=== PATIENT | female | born 1935 | race Caucasian/White ===

== ENCOUNTER → 2017-10-12 | Outpatient (CLI) | payer OTHER, MEDICARE | LOC: FIMAGING 08:37 | PROVIDERS: ATTEND Family Medicine | DX: Z12.31 Encounter for screening mammogram for malignant neoplasm of breast (principal) ==

== ENCOUNTER → 2017-10-31 | Outpatient (CLI) | payer OTHER, MEDICARE | LOC: CIMAGING 15:03 | PROVIDERS: ATTEND Physician Assistant Medical | DX: N13.30 Unspecified hydronephrosis (principal) | CPT/HCPCS: 74018-PO; 76770-PO ==

== ENCOUNTER 2017-11-06 14:44 | Inpatient (IN) | payer OTHER, MEDICARE ==
--- NOTE | 2017-11-06 15:08 | EDPHY ---
HPI/HX/ROS/PE/MDM Narrative: CHIEF COMPLAINT: Shaking, chills, believes it is an adverse reaction to medications HISTORY OF PRESENT ILLNESS: The patient is an 82 y/o female with a history of hypertension complaining of shaking, chills which she believes is an adverse reaction to her medication, Bactrim. She was diagnosed with a UTI several weeks ago and has had several rounds of antibiotics. Sounds like she initially had cephalexin. Recently she has been treated with 1gm methenamine. She was initially diagnosed when she had pelvic pain; she did not have dysuria or a fever at this time. There was hematuria present. On 07/03/17 her urine culture grew E. coli. On 09/14/17 and 10/30/17 her urine culture grew Aerococcus urinae. The sample from 10/30/17 was sent to the [facility] and sensitivities to antibiotics are not available yet. Today she was seen by [facility] with Dr. Molina, and was started on Bactrim, 5 hours ago. She reports developing her symptoms immediately after taking her 1st dose of the new antibiotic, reporting she developed chills, shaking, and had mild pelvic pain. She is no longer shaking and does not have chills. No rash was noted at the time. No difficulty breathing. No fever, itching, chest pain, shortness of breath, palpitations, vomiting, diarrhea, headache, lightheadedness, recent illness. REVIEW OF SYSTEMS: Aside from elements discussed in the HPI, a comprehensive 10-point review of systems was reviewed and is negative. PAST MEDICAL HISTORY: Hypertension, craniotomy SOCIAL HISTORY: Lives in [place], at bedside, retired VITAL SIGNS: BP: 148/101, others reviewed by me GENERAL: Well-developed, well-nourished, resting comfortably in no respiratory distress. HEENT: Atraumatic. Eyes: No icterus, no injection. Mouth: moist mucous membranes. No erythema or lesions. Neck: supple with no adenopathy. LUNGS: Clear to auscultation bilaterally, no wheezes, rhonchi or rales. CARDIAC: Regular rate and rhythm, no rubs, murmurs or gallops. ABDOMEN: Soft, nontender, nondistended, bowel sounds normal. BACK: No CVA tenderness. EXTREMITIES: No trauma. No edema. Range of motion is normal throughout. NEURO: Alert and oriented, grossly nonfocal. SKIN: Warm and dry, no rash. PSYCHIATRIC: Normal mentation, no agitation. Portions of this note were transcribed by a medical insurance claims processor. I personally performed a history, physical exam, medical decision making, and confirmed accuracy of information the transcribed note. ED Course: The patient is an 82 y/o female with a history of hypertension presenting with shaking, chills, and pelvic pain at 10:00, 5 hours ago. She started SMZ-TMP today for an ongoing UTI that has been growing Aerococcus urinae. Currently, she is asymptomatic and her physical exam is normal. IV established. UA, CBC, lactic acid, and BMP ordered. 500mL IV NS administered. 1613: Reassessed patient, she has a temperature of 38.2 degrees, has pelvic pain , and is shaking again. 1gm Invanz, 1gm Tylenol, 600mg PO Motrin, 50mcg Fentanyl , and 2,300mL IV NS administered. She will need to be admitted for her UTI and to rule out urosepsis; patient and her are comfortable with this plan. 1657: Consulted with hospitalist service, Dr. Kimball accepts admission of this patient. The patient does not have a white count and her lactic acid is normal. Sepsis Evaluation Note: The patient presents to the ED with potential infection identified as urinary tract infection. Patient evaluation demonstrates a temperature of 38.2 degrees , heart rate less than 90, respiratory rate less than 20, white blood cell count less than 12,000. Patient's lactic acid is 1.0. Patient did not have evidence of end-organ dysfunction. MDM: Differential diagnosis for fever in adults was considered including but not limited to pneumonia, urinary tract infection, viral syndrome, and influenza. - Data Points Laboratory Results: Laboratory Results 11/06/17 15:30 11/06/17 15:30 11/06/17 11/06/17 11/06/17 15:30 15:30 15:30 WBC RBC Hgb Hct MCV MCH MCHC RDW Plt Count MPV Neut % (Auto) Lymph % (Auto) [place] % (Auto) Eos % (Auto) Baso % (Auto) Nucleat RBC Rel Count Absolute Neuts (auto) Absolute Lymphs (auto) Absolute Monos (auto) Absolute Eos (auto) Absolute Basos (auto) Absolute Nucleated RBC Immature Gran % Immature Gran # PT 13.2 SEC SEC (12.0-15.0) INR 0.98 (0.83-1.16) APTT 30.0 SEC SEC (23.0-38.0) VBG Lactic Acid Sodium 142 mEq/L mEq/L (135-145) Potassium 4.0 mEq/L mEq/L (3.5-5.2) Chloride 105 mEq/L mEq/L (97-110) Carbon Dioxide 23 mEq/l mEq/l (22-31) Anion Gap 14 mEq/L mEq/L (8-16) BUN 15 mg/dL mg/dL (7-23) Creatinine 1.0 mg/dL mg/dL (0.6-1.0) Estimated GFR 53 Glucose 96 mg/dL mg/dL (70-100) Calcium 9.5 mg/dL mg/dL (8.5-10.4) Total Bilirubin 0.4 mg/dL mg/dL (0.1-1.4) Urine Color Urine Appearance Urine pH Ur Specific [place] Urine Protein Urine Ketones Urine Blood Urine Nitrate Urine Bilirubin Urine Urobilinogen Ur Leukocyte Esterase Urine RBC Urine WBC Ur Epithelial Cells Urine Bacteria Urine Mucus Urine Glucose 11/06/17 11/06/17 11/06/17 15:30 15:30 15:00 WBC 4.38 10^3/uL 10^3/uL (3.80-9.50) RBC 4.28 10^6/uL 10^6/uL (4.18-5.33) Hgb 13.1 g/dL g/dL (12.6-16.3) Hct 38.5 % % (38.0-47.0) MCV 90.0 fL fL (81.5-99.8) MCH 30.6 pg pg (27.9-34.1) MCHC 34.0 g/dL g/dL (32.4-36.7) RDW 13.9 % % (11.5-15.2) Plt Count 210 10^3/uL 10^3/uL (150-400) MPV 10.0 fL fL (8.7-11.7) Neut % (Auto) 61.9 % % (39.3-74.2) Lymph % (Auto) 28.3 % % (15.0-45.0) [place] % (Auto) 8.2 % % (4.5-13.0) Eos % (Auto) 0.9 % % (0.6-7.6) Baso % (Auto) 0.5 % % (0.3-1.7) Nucleat RBC Rel Count 0.0 % % (0.0-0.2) Absolute Neuts (auto) 2.71 10^3/uL 10^3/uL (1.70-6.50) Absolute Lymphs (auto) 1.24 10^3/uL 10^3/uL (1.00-3.00) Absolute Monos (auto) 0.36 10^3/uL 10^3/uL (0.30-0.80) Absolute Eos (auto) 0.04 10^3/uL 10^3/uL (0.03-0.40) Absolute Basos (auto) 0.02 10^3/uL 10^3/uL (0.02-0.10) Absolute Nucleated RBC 0.00 10^3/uL 10^3/uL (0-0.01) Immature Gran % 0.2 % % (0.0-1.1) Immature Gran # 0.01 10^3/uL 10^3/uL (0.00-0.10) PT INR APTT VBG Lactic Acid 1.0 mmol/L mmol/L (0.7-2.1) Sodium Potassium Chloride Carbon Dioxide Anion Gap BUN Creatinine Estimated GFR Glucose Calcium Total Bilirubin Urine Color YELLOW Urine Appearance MODERATELY TURBID Urine pH 6.0 (5.0-7.5) Ur Specific [place] 1.013 (1.002-1.030) Urine Protein 2+ H (NEGATIVE) Urine Ketones NEGATIVE (NEGATIVE) Urine Blood 1+ H (NEGATIVE) Urine Nitrate NEGATIVE (NEGATIVE) Urine Bilirubin NEGATIVE (NEGATIVE) Urine Urobilinogen NEGATIVE EU EU (0.2-1.0) Ur Leukocyte Esterase 3+ H (NEGATIVE) Urine RBC 10-15 /hpf H /hpf (0-3) Urine WBC 50-182 /hpf H /hpf (0-3) Ur Epithelial Cells TRACE /lpf /lpf (NONE-1+) Urine Bacteria TRACE /hpf H /hpf (NONE SEEN) Urine Mucus TRACE /lpf /lpf (NONE-1+) Urine Glucose NEGATIVE (NEGATIVE) Medications Given: Discontinued Medications Acetaminophen (Tylenol) 1,000 mg PO EDNOW ONE Stop: 11/06/17 16:14 Last Admin: 11/06/17 16:18 Dose: 1,000 mg Ertapenem (Invanz) 1 gm IV EDNOW ONE PRN Reason: Protocol Stop: 11/06/17 16:20 Last Admin: 11/06/17 16:48 Dose: 1 gm Fentanyl (Sublimaze) 50 mcg IVP EDNOW ONE Stop: 11/06/17 16:18 Last Admin: 11/06/17 16:29 Dose: 50 mcg Sodium Chloride (Ns) 500 mls @ 1,000 mls/hr IV EDNOW ONE PRN Reason: Protocol Stop: 11/06/17 15:52 Last Admin: 11/06/17 15:34 Dose: 500 mls Sodium Chloride (Ns) 2,300 mls @ 4,600 mls/hr 30 ml/kg infuse over 30 min ( 2300 ml) IV EDNOW ONE PRN Reason: Protocol Stop: 11/06/17 16:46 Last Admin: 11/06/17 16:27 Dose: 2,000 mls Ibuprofen (Motrin) 600 mg PO EDNOW ONE Stop: 11/06/17 16:14 Last Admin: 11/06/17 16:18 Dose: 600 mg General Time Seen by Provider: 11/06/17 15:06 Initial Vital Signs: Initial Vital Signs Temperature (C) 37.4 C 11/06/17 14:46 Heart Rate 89 11/06/17 14:46 Respiratory Rate 18 11/06/17 14:46 Blood Pressure 148/101 H 11/06/17 14:46 O2 Sat (%) 95 11/06/17 14:46 O2 Delivery Mode Room Air Allergies/Adverse Reactions: erythromycin base [Erythromycin Base] Allergy (Verified 11/06/17 17:07) Penicillins Allergy (Verified 11/06/17 17:06) Home Medications: Medication Instructions Recorded Aspirin EC [Aspirin EC 81 mg (*)] 81 mg PO DAILY 11/06/17 Atorvastatin Calcium [Lipitor 20 20 mg PO DAILY 11/06/17 mg (*)] Lactobacillus Acidophilus 1 each PO DAILY 11/06/17 [Probiotic] Multivitamins [Multivitamin (*)] 1 each PO DAILY 11/06/17 amLODIPine BESYLATE [Norvasc 5 mg 5 mg PO DAILY 11/06/17 (*)] Departure - Departure Disposition: [facility] Inpatient Acute Clinical Impression: Pyelonephritis, Rule out urosepsis UTI (urinary tract infection) Qualifiers: Urinary tract infection type: site unspecified Hematuria presence: with hematuria Qualified Code(s): N39.0 - Urinary tract infection, site not specified Condition: Fair Report Scribed for: Kayleen Boyle Report Scribed by: Mili Villalobos Date of Report: 11/06/17 Time of Report: 15:07
[2017-11-06] MEDS ORDERED: NS 500 ML IV ONE (15:23)
[2017-11-06 15:40] LABS: PLATELET COUNT 210 10^3/uL (150-400)
[2017-11-06] MEDS ORDERED: ACETAMINOPHEN 500 MG TAB PO ONE (16:13)
[2017-11-06] MEDS ORDERED: IBUPROFEN 600 MG TAB PO ONE (16:13)
[2017-11-06] MEDS ORDERED: NS 2,300 ML IV ONE (16:17)
[2017-11-06] MEDS ORDERED: fentaNYL 100 MCG/2 ML INJ IVP ONE (16:17)
[2017-11-06] MEDS ORDERED: ERTAPENEM 1 GM VIAL IV ONE (16:19)
[2017-11-06 16:29] LABS: INR 0.98 (0.83-1.16); PROTIME(PATIENT) 13.2 SEC (12.0-15.0)
[2017-11-06] MEDS ORDERED: ONDANSETRON DISINTEGRATING 4 MG TAB PO PRN (16:57)
[2017-11-06] MEDS ORDERED: ONDANSETRON 4 MG/2 ML VIAL IVP PRN (16:57)
[2017-11-06] MEDS: cefTRIAXone 1 GM in STERILE WATER INJ 10 ML IV SCH (19:07)
--- NOTE | 2017-11-06 20:04 | GHP ---
[f rep st] HISTORY AND PHYSICAL DATE OF ADMISSION: 11/06/2017 CHIEF COMPLAINT: Rigors. HISTORY OF PRESENT ILLNESS: An 82-year-old female with a history of chronic urinary retention under urologic care, who presents after taking a dose of Bactrim this evening for urinary tract infection a nd then developing rigors. The patient presented to the Emergency Department. Soon after arrival wi th her rigors developed fever as well. Endorses lower abdominal discomfort, which has been chronic t imes many weeks, being monitored by her outpatient urology team. She has been on chronic antibiotics as well, was switched to Bactrim the day of presentation, and after her first dose presenting with r igors. Denies any chest pain. Denies shortness of breath, palpitations, dizziness, nausea, or vomit ing. Reports that her urologist noted blood in her urine, but she has not seen any, has had dark-col ored urine. Denies any diarrhea, lower extremity edema, or rashes. PAST MEDICAL HISTORY: 1. Hypertension. 2. Hyperlipidemia. 3. 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 4. Chronic urinary retention. SOCIAL HISTORY: Negative for tobacco. She drinks wine in the evening with her . Denies illi cit drugs or marijuana. FAMILY HISTORY: Both parents are . REVIEW OF SYSTEMS: A 10-point review of systems is negative with the exception of that reported in t he HPI. PHYSICAL EXAMINATION: VITAL SIGNS: Blood pressure 120/72, heart rate 72, respiratory rate 18, satur ating 92% on room air, temperature 38.2. GENERAL: This is an elderly female lying flat in bed. BLAKE NT: Notable for dry mucous membranes. Eye exam is negative for any icterus. CARDIAC: The patient is regular rate and rhythm. PULMONARY: Clear to auscultation bilaterally. GASTROINTESTINAL: Abdom en is obese. Positive bowel sounds. She is tender to palpation in the lower quadrants. No rebound or guarding. MUSCULOSKELETAL: Negative for any lower extremity edema. SKIN: Negative for any rash es. NEUROLOGIC: She is alert and oriented x3. PSYCHIATRIC: She is pleasant and cooperative on int erview and examination. LABORATORY DATA: Telemetry, which I personally reviewed and interpreted, shows sinus rhythm. White count 4.3, platelets 210, creatinine 1.0, sodium 142. Urinalysis shows 50-182 white blood cell s. ASSESSMENT AND PLAN: This is an 82-year-old female presenting with rigors. 1. Acute rigors with associated fever, certainly concerning for underlying infection. Suspect the s ource to be urinary based on her history. Urine cultures were reviewed with Infectious Disease. Mos t recent pathogen is Aerococcus. We will initiate IV ceftriaxone, as specific sensitivities of her A erococcus have been sent to an outside facility and are not available. The patient's allergies to pe nicillin were reviewed, and it is felt safe to attempt ceftriaxone at this time. Urine will be sent for culture. I have made Urology, Ese Nicole, aware that the patient is being hospitalized. We will check a CT abdomen with contrast to look for possible stones, and we will fluid resuscitate wit h IV normal saline. 2. Chronic urinary retention. We will have nursing bladder scan and straight cath if necessary. 3. Hypertension. We will continue her home medications. She is currently normotensive. 4. Hyperlipidemia. We will continue her statin therapy. PLAN: 1. Prophylaxis with Lovenox. 2. Diet regular. DISPOSITION: I am expecting greater than 2 midnights, as the patient is quite elderly, presenting wi th rigors and concerns for systemic infection. She will require IV fluids, IV antibiotics, and close monitoring. /[id number]/MODL
[2017-11-07] MEDS: ACETAMINOPHEN 325 MG TAB PO PRN ×2 (02:28→13:57)
[2017-11-07 05:59] LABS: PLATELET COUNT 191 10^3/uL (150-400)
--- NOTE | 2017-11-07 08:18 | PDMN ---
Medical Necessity Medical necessity: Pt meets INPT criteria per MD as of 11/06/17: est. LOS >2 MN for eval/tx of acute rigors, fever, concerning for systemic infection; hx UTI, chronic urinary retention, htn per H&P.
[2017-11-07] MEDS ORDERED: amLODIPine BESYLATE 5 MG TAB PO SCH (09:00)
[2017-11-07] MEDS ORDERED: ATORVASTATIN CALCIUM 20 MG TAB PO SCH (09:00)
[2017-11-07] MEDS: cefTRIAXone 1 GM in STERILE WATER INJ 10 ML IV SCH (09:06)
[2017-11-07] MEDS: ASPIRIN EC 81 MG TAB PO SCH (09:07)
[2017-11-07] MEDS: ENOXAPARIN 40 MG/0.4 ML SYR SC SCH ×2 (09:07→09:24)
[2017-11-07] MEDS: MULTIVITAMINS 1 EACH TAB PO SCH (09:07)
--- NOTE | 2017-11-07 09:47 | ASMTCMCOM ---
CM Note CM Note Notes: Patient admitted for UTI symptoms concerning for urosepsis. She has a history of urinary retention. Urology has been consulted, she is receiving IV antibiotics, and PT/OT have been ordered. Patient lives independently with . Case Management will follow for discharge planning. Date Signed: 11/07/2017 09:46 AM Electronically Signed By:Lucrecia Padilla RN
--- NOTE | 2017-11-07 13:42 | GCON ---
[f rep st] CONSULTATION DATE OF CONSULTATION: 11/07/2017 REASON FOR CONSULT: Urinary tract infection. HPI: This is a pleasant 82-year-old female who is well known to our office. She has been seen and e valuated for symptoms of bladder pain, likely consistent with urinary tract infections. Most recentl y, her urine culture was positive for Aerococcus. She was treated with Keflex, yet symptoms persiste d and culture remained positive. Patient took 1 dose of Bactrim yesterday and reported that, an hour later, she had rigors and just generally felt awful. They called our office, and it was recommended they go into the emergency room, where she was admitted with concerns of febrile UTI and possible ur osepsis. Today, she is feeling much more comfortable on ceftriaxone. Continues to have bladder pain but has not had any more rigors. PAST MEDICAL HISTORY: Hypertension, hyperlipidemia, traumatic brain injury 1 year ago, status post c raniotomy in rehab, mild chronic urinary retention. SOCIAL HISTORY: Negative for tobacco. Drinks wine in the evening. is in the room with her. Denies illicit drugs or marijuana. Hikes frequently. FAMILY HISTORY: Parents are . REVIEW OF SYSTEMS: Ten-point review of systems negative except as mentioned in the HPI. PHYSICAL EXAM: VITAL SIGNS: Blood pressure was 104/62, heart rate 71, respirations 16, O2 of 91, te mperature 36.9. GENERAL: This is a well-developed, well-nourished female in no acute distress. BLAKE NT: Normocephalic, atraumatic. Extraocular movements intact. NECK: Supple. No lymphadenopathy. Trachea midline. RESPIRATORY: Normal respiratory sounds. No accessory respiratory muscle use. CAR DIAC: Regular rate and rhythm. No lower extremity edema. No obvious JVD. GI: Abdomen soft, nondi stended, nontender to palpation. No hepatosplenomegaly. Normal bowel sounds. : No CVA tendernes s. Bladder nondistended to palpation. She does have tenderness to deep palpation of the bladder. I NTEGUMENT: No obvious rashes or lesions. NEURO: Patient is alert and oriented. Affect appropriate to situation. MUSCULOSKELETAL: Patient was examined while sitting upright in chair, able to move u pper extremities without difficulty. LABS: White blood cell count 4.4, hemoglobin 12.3, hematocrit 36.4, platelets 191. Lactic acid was 1. Chemistry: Her sodium 144, potassium 4.2, chloride 111, carbon dioxide 24, anion gap 9, BUN 11, creatinine 0.9, glucose 93, calcium 9.1. Her urine was positive for 1+ blood, 3+ leukocytes. Urine culture is pending. IMAGING: She also had a CT scan done, which I have reviewed personally, which does show a thickened bladder wall lining. Ureters appear somewhat enlarged bilaterally, distally before the bladder. Mul tiple uterine fibroids. No obvious stones in the ureter. She does have a large gallbladder stone, 2 .3 cm in size. ASSESSMENT AND PLAN: Urinary tract infection, gallbladder stone. Discussed findings of the CT scan with the patient and her in detail. Recommend continued treatment empirically for urinary tr act infection. Last urine culture was sent to [facility] for susceptibility testing. Will await those fin in results. She also has a cystoscopy set up for next Sunday in the office with Dr. Molina. However , we recommend that she continue antibiotics through that appointment. Also discussed her gallbladde r stone. She has no right upper quadrant pain. No pain or nausea after eating or drinking. Discuss ed the risk of a large stone, such as infection. She will discuss with her primary care or consider a consult with a general surgeon in the future. Not interested in pursuing treatment at this point. /[id number]/MODL
--- NOTE | 2017-11-07 16:49 | HOSPPROG ---
Hospitalist Progress Note Assessment/Plan: 82 yo F w chronic pelvic pain and UTI uti: ceftriaxone day 2 ucx pending chronic pelvic pain: outpt workup proph: [facility] cholelithiasis: follow dispo: inpt Subjective: case d/w terrence dixon, urology JAR[facility]TT Objective: Vital Signs Temp Pulse Resp BP Pulse Ox 36.9 C 68 15 101/54 L 92 11/07/17 15:18 11/07/17 15:18 11/07/17 15:18 11/07/17 15:18 11/07/17 15:18 Microbiology 11/06/17 17:45 Respiratory Panel (PCR) - Final Nasal, Sinus - Swab No Organism Detected Laboratory Results 11/07/17 05:30 11/07/17 05:30 11/06/17 11/07/17 11/08/17 05:59 05:59 05:59 Intake Total 3100 Balance 3100 PT 13.2 SEC (12.0-15.0) 11/06/17 15:30 INR 0.98 (0.83-1.16) 11/06/17 15:30 - Physical Exam Constitutional: no apparent distress, appears nourished Eyes: PERRL, anicteric sclera Ears, Nose, Mouth, Throat: moist mucous membranes, hearing normal Cardiovascular: regular rate and rhythym, no murmur, rub, or gallop Respiratory: no respiratory distress, no rales or rhonchi Gastrointestinal: normoactive bowel sounds, soft, non-tender abdomen Genitourinary: no bladder fullness, No gonzalez in urethra Skin: warm, normal color Musculoskeletal: full muscle strength Neurologic: AAOx3 Psychiatric: interacting appropriately ICD10 Worksheet Patient Problems: Problems Problem Status Onset Pyelonephritis Acute UTI (urinary tract infection) Acute
[2017-11-08] MEDS: ACETAMINOPHEN 325 MG TAB PO PRN (00:24)
[2017-11-08] MEDS ORDERED: BISACODYL 10 MG SUPP PR PRN (05:29)
[2017-11-08] MEDS ORDERED: LACTULOSE 20 GM/30 ML UDCUP PO PRN (05:29)
[2017-11-08] MEDS ORDERED: MAGNESIUM HYDROXIDE 30 ML UDCUP PO PRN (05:29)
[2017-11-08] MEDS ORDERED: POLYETHYLENE GLYCOL 3350 17 GM PKT PO PRN (05:29)
[2017-11-08 05:32] VITALS: TEMP 98.1
[2017-11-08 07:57] VITALS: BP 115/74; PULSE 76; RESP 16; O2SAT 94
[2017-11-08] MEDS: MULTIVITAMINS 1 EACH TAB PO SCH (07:59)
[2017-11-08] MEDS: ENOXAPARIN 40 MG/0.4 ML SYR SC SCH (07:59)
[2017-11-08] MEDS: ASPIRIN EC 81 MG TAB PO SCH (08:00)
[2017-11-08] MEDS: cefTRIAXone 1 GM in STERILE WATER INJ 10 ML IV SCH (08:29)
[2017-11-08] MEDS ORDERED: amLODIPine BESYLATE 5 MG TAB PO SCH (09:00)
[2017-11-08] MEDS ORDERED: ATORVASTATIN CALCIUM 10 MG TAB PO SCH ×2 (09:00)
--- NOTE | 2017-11-08 11:12 | HOSPPROG ---
Hospitalist Progress Note Assessment/Plan: 82 yo F w chronic pelvic pain and UTI uti: ceftriaxone day 3 likely e coli. previous isolates aleman sens treat 5 add'l days until outpt cystoscopy ucx pending chronic pelvic pain: outpt workup proph: [facility] cholelithiasis: follow dispo: home today > 30 minutes on dc Subjective: afebrile. urine w e coli, low cx count Objective: Vital Signs Temp Pulse Resp BP Pulse Ox 36.7 C 76 16 115/74 94 11/08/17 07:56 11/08/17 07:56 11/08/17 07:56 11/08/17 08:00 11/08/17 07:56 Laboratory Results 11/07/17 05:30 11/07/17 05:30 11/07/17 11/08/17 11/09/17 05:59 05:59 05:59 Intake Total 3100 500 Balance 3100 500 PT 13.2 SEC (12.0-15.0) 11/06/17 15:30 INR 0.98 (0.83-1.16) 11/06/17 15:30 - Physical Exam Constitutional: no apparent distress, appears nourished Eyes: PERRL, anicteric sclera Ears, Nose, Mouth, Throat: moist mucous membranes, hearing normal Cardiovascular: regular rate and rhythym, no murmur, rub, or gallop Respiratory: no respiratory distress, no rales or rhonchi Gastrointestinal: normoactive bowel sounds, soft, non-tender abdomen Genitourinary: no bladder fullness, No gonzalez in urethra Skin: warm Musculoskeletal: full muscle strength ICD10 Worksheet Patient Problems: Problems Problem Status Onset Pyelonephritis Acute UTI (urinary tract infection) Acute
--- NOTE | 2017-11-08 11:32 | GDS ---
[f rep st] DISCHARGE SUMMARY DISCHARGE DIAGNOSES: 1. Urinary tract infection. 2. Rigors. 3. Chronic pelvic pain. 4. Chronic dysuria. 5. Hypertension. 6. Hyperlipidemia. Please see admission history and physical by Dr. Natalie Kimball. The patient presented with rigors. She had been treated for an Aerococcus UTI. subsequently developed rigors. She had a pos itive UA, which subsequently grew out likely E coli. In the past, she has had pansensitive isolates. We reviewed her history, and it sounds like she has been wiping back to front, using a bidet, both of which increase her risk for recurrent UTIs. She was seen by Urology, who will see her next week for cystoscopy as part of her workup for ongoing pain. She does not have a history that suggests the possibility of a colovesicular fistula, but cyst oscopy is upcoming. She will receive 5 days of Keflex to complete through her course of cystoscopy. /[id number]/MODL
--- NOTE | 2017-11-08 15:25 | ASDISCHSUM ---
Discharge Information Plan Status: Medically Cleared to Leave: Discharge Date:11/08/2017 12:30 PM CM D/C Disposition: ADT D/C Disposition:Home, Routine, Self-Care Projected Discharge Date:11/08/2017 12:30 PM Transportation at D/C: Discharge Delay Reason: Follow-Up Date:11/08/2017 12:30 PM Discharge Slot: Final Diagnosis: Placement Information Patient Contact Information Contact Name:KRYSTYNA Relationship: Address:[address] City:[place] Alternate Phone: State/Zip Code:[place] [address] Email: Financial Information Financial Class: Primary Plan Desc:MEDICARE INPATIENT Primary Plan Number:[id number] Secondary Plan Desc:[employer]/MDR SUPPLEMENT Secondary Plan Number:[id number] Assessment Information [facility] CM Progress Note CM Note CM Note Notes: Patient admitted for UTI symptoms concerning for urosepsis. She has a history of urinary retention. Urology has been consulted, she is receiving IV antibiotics, and PT/OT have been ordered. Patient lives independently with . Case Management will follow for discharge planning. Date Signed: 11/07/2017 09:46 AM Electronically Signed By:Lucrecia Padilla RN [facility] CM Progress Note CM Note CM Note Notes: Pt DC'd today with no needs. PT/OT cleared and RN stated pt has no other needs. Date Signed: 11/08/2017 03:24 PM Electronically Signed By:Luz Rob LCSW Intervention Information
== END 2017-11-08 12:30 | disposition home or self-care (01) | DRG 690 ==
LOC: OBSVTOIN 16:35 → F1N 18:27
PROVIDERS: ADMIT Hospitalist; ATTEND Internal Medicine
DX: N39.0 Urinary tract infection, site not specified (principal); B96.20 Unspecified Escherichia coli [E. coli] as the cause of diseases classified elsewhere; R10.2 Pelvic and perineal pain; R30.0 Dysuria; I10 Essential (primary) hypertension; E78.5 Hyperlipidemia, unspecified; K80.20 Calculus of gallbladder without cholecystitis without obstruction
CPT/HCPCS: 96374; 97161-GP; 97165-GO; G8978-GP-CI; G8979-GP-CH; G8987-GO-CI; G8988-GO-CH; G8989-GO-CH; J0696; J1335; J1650; J3010

== ENCOUNTER → 2017-12-19 | Outpatient (CLI) | payer OTHER, MEDICARE ==
[~2017-12-19] MED LIST: GADOBUTROL 10 ML VIAL IVP ONE
== END ==
LOC: FIMAGING 10:15
PROVIDERS: ATTEND Specialist
DX: R35.0 Frequency of micturition (principal); R31.29 Other microscopic hematuria; N32.3 Diverticulum of bladder; D25.9 Leiomyoma of uterus, unspecified
CPT/HCPCS: 72197; A9585

== ENCOUNTER → 2018-01-24 | Outpatient (CLI) | payer OTHER, MEDICARE | LOC: FIMAGING 07:25 | PROVIDERS: ATTEND Specialist | DX: N30.91 Cystitis, unspecified with hematuria (principal); N88.8 Other specified noninflammatory disorders of cervix uteri; D25.9 Leiomyoma of uterus, unspecified; K57.30 Diverticulosis of large intestine without perforation or abscess without bleeding; M89.8X5 Other specified disorders of bone, thigh | CPT/HCPCS: 72197; A9585 ==

== ENCOUNTER → 2018-11-15 | Outpatient (CLI) | payer OTHER, MEDICARE | LOC: FIMAGING 14:52 | PROVIDERS: ATTEND Family Medicine | DX: Z12.31 Encounter for screening mammogram for malignant neoplasm of breast (principal) ==

== ENCOUNTER → 2019-01-10 | Outpatient (CLI) | payer OTHER, MEDICARE | LOC: FIMAGING 07:14 | PROVIDERS: ATTEND Urology | DX: N32.89 Other specified disorders of bladder (principal) | CPT/HCPCS: 72197; A9585; 82565-PO ==